=== PATIENT | male | born 1965 | race Caucasian/White ===

== ENCOUNTER 2025-02-28 20:25 | Emergency (ER) | payer OTHER ==
[~2025-02-28] VITALS: Ht 160 cm; Wt 65.8 kg
[2025-03-01] MEDS ORDERED: KETOROLAC TROMETHAMINE INJ 30 MG/ML VIAL ONE (02:47)
[2025-03-01] MEDS: KETOROLAC TROMETHAMINE INJ 30 MG/ML VIAL IM ONE (03:22)
[2025-03-01 06:11] VITALS: BP 91/65; TEMP 98; O2SAT 98
== END 2025-03-01 06:11 | disposition home or self-care (01) ==
LOC: ER 20:29
DX: G89.29 Other chronic pain (principal); M54.50 Low back pain, unspecified; Z59.00 Homelessness unspecified
CPT/HCPCS: 99285; 72131; 96372; J1885

== ENCOUNTER 2025-03-05 23:47 | Emergency (ER) | payer OTHER ==
[~2025-03-05] VITALS: Ht 167.6 cm; Wt 70.3 kg
[2025-03-06 00:52] LABS: PLATELET COUNT (AUTO) 247 K/uL (150-450); RED BLOOD CELL COUNT(AUTO) 4.38 MIL/uL (4.5-6.0); RED CELL DISTRIBUTION WIDTH 13.9 % (11.5-15.0); WHITE BLOOD COUNT (AUTO) 8.3 K/uL (4.3-11.0)
[2025-03-06 01:10] LABS: ASPARTATE AMINOTRANSFERASE 17 U/L (15-37); CALCIUM, SERUM 8.4 mg/dL (8.5-10.1); CREATININE 1.1 mg/dL (0.6-1.3); SODIUM SERUM 143 mmol/L (136-145); TOTAL PROTEIN, SERUM 6.6 g/dL (6.4-8.2); UREA NITROGEN, BLOOD 11 mg/dL (7-18)
[2025-03-06 01:11] LABS: ALCOHOL, BLOOD < 3 mg/dL (0-10)
[2025-03-06 01:50] LABS: APPEARANCE,URINE CLEAR (CLEAR); BLOOD, URINE NEGATIVE Ery/uL (NEGATIVE); LEUKOCYTE ESTERASE ,URINE NEGATIVE (NEGATIVE); NITRITE, URINE NEGATIVE (NEGATIVE); UGLUCOSE NEGATIVE (NEGATIVE)
[2025-03-06 01:56] LABS: AMPHETAMINE, URINE NEGATIVE (NEGATIVE); BARBITURATE, URINE NEGATIVE (NEGATIVE); BENZODIAZEPINE, URINE NEGATIVE (NEGATIVE); COCCAINE, URINE NEGATIVE (NEGATIVE); OPIATE, URINE NEGATIVE (NEGATIVE)
[2025-03-06 01:58] LABS: CANNABINOID, URINE POSITIVE (NEGATIVE)
[2025-03-06] MEDS: PAROXETINE HCL 10 MG TABLET PO ONE (15:43)
[2025-03-07 01:04] VITALS: BP 124/76; TEMP 98.8; O2SAT 99
== END 2025-03-07 01:12 ==
LOC: ER 23:50
DX: R45.851 Suicidal ideations (principal); Z59.00 Homelessness unspecified; Z86.2 Personal history of diseases of the blood and blood-forming organs and certain disorders involving the immune mechanism; Z79.899 Other long term (current) drug therapy; Z20.822 Contact with and (suspected) exposure to COVID-19
CPT/HCPCS: 36415; 80048-TC; 80076-TC; 85025-TC; 98960; G0480